=== PATIENT | female | born 1995 | race Caucasian/White ===

== ENCOUNTER → 2019-04-01 | Outpatient (CLI) | payer OTHER ==
[~2019-04-01] MED LIST: AMOX-559 PO; AUG250 PO; LEVO1TAB30 PO; METR70GE2 VA; NO MEDS; ONDA4TAB PO; TOBR5DRO OP; VALA100059 PO; [UNRECOGNIZED DRUG - REMARK] PO
[2019-04-01 14:28] LABS: PLATELET COUNT, AUTOMATED 211 K/uL (150-450)
--- NOTE | 2019-04-02 13:04 | EKG ---
FACILITY: [facility] [place] PATIENT NAME: YAMILETH PAULA : [id number] MR: [id number]: [id number] EXAM DATE: ORDERING PHYSICIAN: LEONID HUMPHREY TECHNOLOGIST: VANE Test Reason : MIGRAINES Blood Pressure : / mmHG Vent. Rate : 085 BPM Atrial Rate : 085 BPM P-R Int : 120 ms QRS Dur : 088 ms QT Int : 358 ms P-R-T Axes : 073 086 060 degrees QTc Int : 426 ms Sinus rhythm Possible right atrial enlargement No acute appearing findings No previous ECGs available Confirmed by GILL MOREL ([id number] on 04/02/2019 8:17:20 PM Referred By: Confirmed By:GILL MOREL
== END ==
LOC: LAB 13:55
PROVIDERS: ATTEND Nurse Practitioner Family
DX: R51 Headache (principal); R00.0 Tachycardia, unspecified
CPT/HCPCS: 36415; 82040; 82247; 82310; 82374; 82435; 82565; 82947; 84075; 84132; 84155; 84295; 84443; 84450; 84460; 84520; 85025; 85651; 86140